=== PATIENT | female | born 1955 | race Caucasian/White ===

== ENCOUNTER → 2017-02-05 | Outpatient (CLI) | payer MEDICARE, MEDICAID ==
[~2017-02-05] MED LIST: AMBIEN 5MG TABLE5 MG PO; ASPIR-LOW81 MG PO; ASPIRIN 32325 MG/TAB PO; ATENOLOL; AUGMENTIN 875 M1 TAB PO; CLINDAMYCIN HC150 MG PO; CLINDAMYCIN HC300 MG PO; DIOVAN; DIOVAN HCT 25 M1 TAB PO; FLAGYL500 MG PO; HUMALOG100 U/ML; HUMALOG100 U/ML SC; HUMALOG100 U/ML SQ; LANTUS100 U/ML; LANTUS100 U/ML SC; LIPITOR 40MG TA40 MG PO; LISINOPRIL; LODINE 300300 MG/CAP PO; LODINE PO; NITROSTAT0.4 MG SL; PERCOCET 325 MG1 TA2 PO; PRINIVIL5 MG PO; TENORMIN 5050 MG/TAB PO; TYLENOL #3 301 UDTAB PO; TYLENOL W/COD1 UDTAB PO; ZOCOR; ZOCOR 80MG80 MG PO; ZOCOR80 MG PO
== END ==
LOC: MC.RAD 13:20
DX: Z12.31 Encounter for screening mammogram for malignant neoplasm of breast (principal)

== ENCOUNTER 2017-03-05 08:53 | Day surgery (SDC) | payer MEDICARE, MEDICAID ==
[2005-10-08 09:26] VITALS: BP 128/91
[~2017-03-05] VITALS: Ht 154.9 cm; Wt 78.1 kg
[~2017-03-05 08:53] MED LIST changes: -LIPITOR 40MG TA40 MG PO
[2017-03-05] MEDS ORDERED: LIPITOR 40MG TA40 MG PO (09:11)
[2017-03-05 09:42] VITALS: BP 130/79; PULSE 77; TEMP 97.9
[2017-03-05 11:25] VITALS: BP 135/79; PULSE 82; TEMP 98.5
[2017-03-05 11:40] VITALS: BP 235/75; PULSE 82
[2017-03-05 13:15] VITALS: BP 127/81; PULSE 73
== END 2017-03-05 12:10 | disposition home or self-care (01) ==
LOC: SDCO 08:53
DX: Z12.11 Encounter for screening for malignant neoplasm of colon (principal); K64.0 First degree hemorrhoids
CPT/HCPCS: OP; J2250; J3010; J7030

== ENCOUNTER 2021-06-28 12:00 | Inpatient (IN) | payer MEDICARE, MEDICAID ==
[~2021-06-28] VITALS: Ht 386.1 cm; Wt 89.8 kg
[~2021-06-28 12:00] MED LIST changes: +ASPI325T6 PO; +ASPIRIN E.C. 8181 MG PO; -LANTUS100 U/ML SC; +LIPITOR 40MG TA40 MG PO; +MIRALAX PA17 GM/Dose PO; +ROXICODONE 55 MG/TAB PO; +SENOKOT S 50 MG1 TAB PO; +TRESIBA FL100 UNIT/1 SQ; +TYLENOL 500MG500 MG PO
--- NOTE | 2021-06-29 01:26 | NUR ---
GAVE [place] FOR CONSTIPATION.
[2021-06-29 04:49] VITALS: BP 147/73; PULSE 90; TEMP 98.5
--- NOTE | 2021-06-29 07:04 | NUR ---
Report received from DEEP Ndiaye. Patient is in bed sleeping. Call light and bedside table are within reach. Will continue to monitor patient throughout shift.
--- NOTE | 2021-06-29 16:15 | NUR ---
poultry dressing worker touched base with the patient. Therapy going well. Patient lives alone in [place] with her cats which she calls her roommates. Patient's uncle Jay is her emergency contact and she still declines wanting to establish a DPOA. Patient utilizes a cane to assist with mobility and has no oxygen needs.PCP is Dr. Cota and she utilizes [facility] in for medications.
[2021-06-29 18:00] VITALS: BP 131/46; PULSE 85; TEMP 98.1
--- NOTE | 2021-06-29 20:21 | NUR ---
RECEIVED CHANGE OF SHIFT REPORT FROM DAY SHIFT NURSE.
[2021-06-30 05:04] VITALS: BP 124/53; PULSE 77; TEMP 98.1
--- NOTE | 2021-06-30 07:01 | NUR ---
appears to be sleeping, bedside shift report received from DEEP Hernández
--- NOTE | 2021-06-30 07:04 | NUR ---
CHANGE OF SHIFT REPORT GIVEN TO DAY SHIFT THOMAS ADAME.
--- NOTE | 2021-06-30 07:15 | NUR ---
assisted sitting up in bed to have breakfast
--- NOTE | 2021-06-30 08:10 | NUR ---
has been up to bathroom and now sitting in recliner, full assessment completed, see interventions for further info, denies needs at this time
--- NOTE | 2021-06-30 10:00 | NUR ---
has been working with physical and occupational therapy and now resting in chair, c/o pain/discomfort to right hip, medicated with tylenol 650mg po
--- NOTE | 2021-06-30 11:04 | NUR ---
physical therapy in to work with patient
--- NOTE | 2021-06-30 12:30 | NUR ---
sitting up in chair eating lunch
--- NOTE | 2021-06-30 12:59 | NUR ---
resting in chair
--- NOTE | 2021-06-30 13:00 | NUR ---
to therapy, bedside shift report given to DEEP Theodore
--- NOTE | 2021-06-30 13:54 | NUR ---
Received report from DEEP Felix. To take over report for remainder of shift.
--- NOTE | 2021-06-30 15:06 | NUR ---
PT ALERT AND ORIENTED. REQUESTING PAIN MEDICATIONS AFTER WORKING WITH THERAPY. PT STATES PAIN IS INCREASING TO PAINFUL ACHE. MEDICATION PROVIDED PER ORDERS. PT HAS CLEAR LUNGS TO AUSCULTATION. PT S1,S2 SOUNDS HEARD. PT HAS BILATERAL LOWER EXTREMITY EDEMA NOTED 1+. PT REPORTED NAUSEA RESOLVED, ACTIVE BOWEL SOUNDS AND NON-TENDER TO TOUCH. PT RIGHT HIP IS COVERED WITH AQUACELL, CLEAN, DRY, INTACT. PT CALL LIGHT WITHIN REACH.
[2021-06-30 18:12] VITALS: BP 135/48; PULSE 76; TEMP 97.9
--- NOTE | 2021-06-30 19:00 | NUR ---
RECEIVED CHANGE OF SHIFT REPORT FROM DAY SHIFT RN. BED ALARM ON WHEN IN BED DURING REPORT WITH CALL LIGHT WITHIN REACH.
--- NOTE | 2021-06-30 19:09 | NUR ---
No significant changes noted in pt this shift. Pt able to ambulate with walker, gait belt, and non-skid socks as stand by assist to restroom. Pt able to call for needs. Report given to night warehouse selector nurse.
--- NOTE | 2021-06-30 22:10 | NUR ---
REPORTS STILL HAS HIP PAIN, REFUSES OFFER OF ADDITIONAL PAIN MEDS AT THIS TIME. ENCOURAGED PATIENT TO REQUEST FOR MORE PAIN MEDS LATER PRN.
[2021-07-01 04:23] VITALS: BP 130/58; PULSE 77; TEMP 97.8
[2021-07-01 05:00] VITALS: BP 166/73; PULSE 77; TEMP 98.1
--- NOTE | 2021-07-01 07:00 | NUR ---
CHANGE OF SHIFT REPORT GIVEN TO DAY SHIFT KATRIN ADAME.
--- NOTE | 2021-07-01 07:16 | NUR ---
Report received from Betty ADAME. Patient is up resting comfortably in bed. Call light and bedside table are within reach. Will continue to monitor patient throughout shift.
[2021-07-01 15:51] VITALS: BP 135/58; PULSE 76; TEMP 98.2
--- NOTE | 2021-07-01 19:12 | NUR ---
RECEIVED CHANGE OF SHIFT REPORT FROM DAY SHIFT RN. BED ALARM ON WHEN IN BED WITH CALL LIGHT WITHIN REACH.
--- NOTE | 2021-07-01 20:00 | NUR ---
DENIES CHEST PAIN/SOA/NAUSEA AT THIS TIME. DENIES NUMBNESS/TINGLING TO EXTREMITIES CURRENTLY. DENIES NEEDS FOR STOOL SOFTENER, STATED SHE WILL ASK FOR STOOL SOFTENERS IF NEEDED.
--- NOTE | 2021-07-02 03:23 | NUR ---
DENIES NEEDS FOR PAIN MEDS AT THIS TIME.
[2021-07-02 05:13] VITALS: BP 159/72; PULSE 79; TEMP 97.8
--- NOTE | 2021-07-02 07:21 | NUR ---
CHANGE OF SHIFT REPORT GIVEN TO DAY SHIFT KATRIN ADAME.
--- NOTE | 2021-07-02 07:23 | NUR ---
Report received from DEEP Hernández. Patient is up in recliner. Call light and bedside table are within reach. Will continue to monitor throughout shift.
[2021-07-02 16:17] VITALS: BP 147/70; PULSE 79; TEMP 98
--- NOTE | 2021-07-02 17:45 | NUR ---
Patient continually c/o soreness on coccyx. This nurse explained to patient she still has to rotate when sitting in chair every one hour and when in bed every 2 hours. Patient acknowledged understanding.
--- NOTE | 2021-07-02 19:00 | NUR ---
RECEIVED CHANGE OF SHIFT REPORT FROM DAY SHIFT RN. PATIENT DENIES CHEST PAIN/SOA/NAUSEA AT THIS TIME. DENIES NUMBNESS/TINGLING TO EXTREMITIES CURRENTLY
[2021-07-03 05:27] VITALS: BP 169/65; PULSE 78; TEMP 97.6
--- NOTE | 2021-07-03 07:24 | NUR ---
CHANGE OF SHIFT REPORT GIVEN TO DAY SHIFT RNGRACIE.
--- NOTE | 2021-07-03 10:27 | NUR ---
Pt. progressing w/ plan of care. Pt. worked w/ therapy this am, AM meds given after that. Pt. denies needs at this time, call light and belongings in reach.
--- NOTE | 2021-07-03 16:17 | NUR ---
Photograph Inspector met with patient to discuss discharge planning. Patient to tentatively discharge on , 07/06/21 and she is agreeable to this. Patient is open to Home Health services and would like to use [facility]. SW contacted Radha at [facility] and faxed referral. Patient states she is also working with [place] to establish additional in home supports to assist with household duties.
[2021-07-03 17:33] VITALS: BP 156/71; PULSE 82; TEMP 97.8
[2021-07-04 04:26] VITALS: BP 155/75; PULSE 81; TEMP 98
--- NOTE | 2021-07-04 05:41 | NUR ---
pt has been up to restroom several times during the noc with SBA, using walker. pt c/o pain @ bedtime, oxycodone given. pt c/o continued mild aching but didn't want anything medication mariano, this RN offered heating pad and pt agreed to try, pt stated she felt it helped. SS given @HS
--- NOTE | 2021-07-04 06:54 | NUR ---
awake and sitting up in chair, bedside shift report received from DEEP Langley
--- NOTE | 2021-07-04 07:17 | NUR ---
had breakfast and tolerated well, full assessment completed, see interventions for further info,
--- NOTE | 2021-07-04 08:30 | NUR ---
out of room and working with physical therapy
--- NOTE | 2021-07-04 09:06 | NUR ---
Dr Zapata in to see patient
--- NOTE | 2021-07-04 10:44 | NUR ---
Radha at [facility] advised they are able to accept patient at time of discharge.
--- NOTE | 2021-07-04 11:49 | NUR ---
c/o discomfort to right hip, medicated with tylenol 650mg po
--- NOTE | 2021-07-04 13:15 | NUR ---
out of room and working with therapy
--- NOTE | 2021-07-04 13:30 | NUR ---
Admission QIM scores were reviewed by the team. Code of 4 chosen for oral hygiene was determined by team discussion to be the most usual performance for this patient during the assessment period. Code of 3 chosen for toilet hygiene was determined by team discussion to be the most usual performance for this patient during the assessment period. Code of 3 chosen for toileting transfers was determined by team discussion to be the most usual performance for this patient during the assessment period. Code of 3 chosen for shower/bathe self was determined by team discussion to be the most usual performance before interventions for this patient during the assessment period. Code of 3 chosen for lower body dressing was determined by team discussion to be the most usual performance for this patient during the assessment period. Code of 1 chosen for putting on/taking off footwear was determined by team discussion to be the most usual performance for this patient during the assessment period. Code of 4 chosen for rolling left to right was determined by team discussion to be the most usual performance before interventions for this patient during the assessment period. Code of 3 chosen for sit to lying was determined by team discussion to be the most usual performance before interventions for this patient during the assessment period. Code of 3 chosen for lying to sitting on side of bed was determined by team discussion to be the most usual performance for this patient during the assessment period. Code of 4 for sit to stand was determined by team discussion to be the most usual performance for this patient during the assessment period. Code of 4 for chair/bed to chair transfers was determined by team discussion to be the most usual performance for this patient during the assessment period.--PD Mary Jo
--- NOTE | 2021-07-04 13:48 | NUR ---
returned to room from working with physical therapy, therapist stated that while in PT work room she said her stomach wasn't feeling the best and then she tried to get to the bathroom but was incontinent of a loose stool, she states she has IBS and when she has to have a BM sometimes she has no control, she is now working with occupational therapy and denies needs
--- NOTE | 2021-07-04 14:48 | NUR ---
requesting tylenol for discomfort, informed her it was an hour too soon, she states she isn't feeling good and wants to take a nap, instructed her it is OK to do this, back to bed and will try to nap
--- NOTE | 2021-07-04 15:45 | NUR ---
took a nap and states she is now feeling better, up to bathroom independently and then out and into recliner
[2021-07-04 16:14] VITALS: BP 165/65; PULSE 85; TEMP 98.5
--- NOTE | 2021-07-04 17:00 | NUR ---
ambulating to bathroom independently, now c/o pain/discomfort to right hip, medicated with tylenol 650mg po
--- NOTE | 2021-07-04 19:02 | NUR ---
bedside shift report given to DEEP Ahn
--- NOTE | 2021-07-05 03:42 | NUR ---
PT SLEEPING @ THIS TIME. RESPIRATIONS UNLABORED. CALL LIGHT WITHIN REACH. PT HAS BEEN AMBULATING TO INDEPENDENTLY WITH WALKER. PT HAD STATED LAST NIGHT THAT SHE WAS HAVING GENERALIZED PAIN EVERYWHERE, THEN STATED THAT HER BOTTOM WAS ESPECIALLY SORE. PT ENCOURAGED TO TURN OFF OF BOTTOM IN BED TO DECREASE PRESSURE. PT REQUESTED ROXICODONE, WAS ADMINISTERED.
[2021-07-05 05:38] VITALS: BP 145/69; PULSE 85; TEMP 98.1
--- NOTE | 2021-07-05 15:23 | NUR ---
Tobacco Dipper followed up with patient and let her know that [facility] can accept. Patient is also interested in having a home performance laborer and has been working with [employer]. Patient requested SW contacted [place] to assist. Patient reports she has a walker at home but is not sure if it is the right size and that she obtained it several years ago. Patient is interested in having a new one ordered from [facility]. SW also reviewed DME handout with patient as she is working on obtaining a shower chair. Patient states she will speak with her uncle about this. SW contacted [facility] and left [facility]ira Certified Tumor Registrar a message. SINGH also faxed referral/order for a front wheeled walker to Chelsey at [facility]. SINGH advised Chelsey that patient will discharge tomorrow.
[2021-07-05 17:46] VITALS: BP 147/62; PULSE 82; TEMP 98.5
[2021-07-06 05:23] VITALS: BP 145/65; PULSE 75; TEMP 98.3
--- NOTE | 2021-07-06 07:17 | NUR ---
BRIEF CHANGE OF SHIFT REPORT WRITTEN FOR DAY SHIFT RN.
--- NOTE | 2021-07-06 08:15 | NUR ---
Patient is sitting in recliner and denies pain at this time. Call light and bedside table are with reach. Patient is MOD-I in room. Will continue to monitor patient throughout shift.
--- NOTE | 2021-07-06 08:30 | NUR ---
Patient is sitting in recliner and denies pain at this time. Call light and bedside table are within reach. Patient is MOD-I in room. Will continue to monitor patient throughout shift.
[2021-07-06] MEDS ORDERED: ROXICODONE 55 MG/TAB PO ×2 (08:52→11:48)
--- NOTE | 2021-07-06 13:33 | NUR ---
Bellmaker contacted Chelsey at [facility] who advised they would be able to deliver patient's walker today. SW contacted Radha at [facility] and faxed discharge orders. SW contacted patient to get updated cell phone number (#[phone]) and provided this number to [facility]. No additional needs at this time.
--- NOTE | 2021-07-06 15:58 | NUR ---
Patient health summary, discharge summary and home meds printed and reviewed with patient and Uncle. Stressed importanc of follow up appointments. Patient informed to visit pharmacy of choice to picker and packer medication. Reviewed medications. Belongings gathered by patient. Room is cleared of all personal items to include cell phone and manager support services. Belongings gathered by patient. Patient transported via WC by P[employer] and seatbelted for ride home. Patient denied any further questions at this time/
== END 2021-07-06 14:00 | disposition home health service (06) | DRG 561 ==
PROVIDERS: ADMIT Internal Medicine
DX: S72.091D Other fracture of head and neck of right femur, subsequent encounter for closed fracture with routine healing (principal); Z96.641 Presence of right artificial hip joint; I25.10 Atherosclerotic heart disease of native coronary artery without angina pectoris; Z95.5 Presence of coronary angioplasty implant and graft; E11.9 Type 2 diabetes mellitus without complications; K59.00 Constipation, unspecified; E78.5 Hyperlipidemia, unspecified; R26.89 Other abnormalities of gait and mobility; I25.2 Old myocardial infarction; Z86.73 Personal history of transient ischemic attack (TIA), and cerebral infarction without residual deficits; Z79.4 Long term (current) use of insulin; Z73.6 Limitation of activities due to disability; Z88.8 Allergy status to other drugs, medicaments and biological substances; Z79.82 Long term (current) use of aspirin; Z79.899 Other long term (current) drug therapy; Z79.891 Long term (current) use of opiate analgesic; Z60.2 Problems related to living alone; W01.0XXD Fall on same level from slipping, tripping and stumbling without subsequent striking against object, subsequent encounter; Y92.009 Unspecified place in unspecified non-institutional (private) residence as the place of occurrence of the external cause; R19.7 Diarrhea, unspecified
CPT/HCPCS: 99222-AI; J1815